=== PATIENT | female | born 2000 | race Caucasian/White ===

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

== ENCOUNTER 2019-11-08 02:17 | Observation (INO) | payer MEDICAID ==
[~2019-11-08] VITALS: Ht 152.4 cm; Wt 71.7 kg
[2019-11-08] MEDS ORDERED: PNV1TABL76 PO (02:50)
[2019-11-08] MEDS ORDERED: FERR325T6 PO (02:50)
== END 2019-11-08 04:00 | disposition home or self-care (01) ==
LOC: 8 EST LDRP 02:17
PROVIDERS: ADMIT Obstetrics & Gynecology; ATTEND Obstetrics & Gynecology
DX: O99.89 Other specified diseases and conditions complicating pregnancy, childbirth and the puerperium (principal); R07.89 Other chest pain; Z3A.38 38 weeks gestation of pregnancy
CPT/HCPCS: 99281; G0378

== ENCOUNTER 2019-11-08 04:16 | Emergency (ER) | payer MEDICAID ==
[~2019-11-08] VITALS: Ht 152.4 cm; Wt 72.0 kg
[~2019-11-08 04:16] MED LIST: FERR325T6 PO; PNV1TABL76 PO
[2019-11-08] MEDS ORDERED: VISCOUS LIDOCAINE 2% 15 ML UDC PO STA (04:53)
[2019-11-08] MEDS ORDERED: MAGNESIUM/ALUMINUM HYDROXIDE/SIMETHICONE 30ML UDC PO STA (04:53)
[2019-11-08 05:06] LABS: BASOPHILS % 0.5 % (0.0-2.0); HEMOGLOBIN. 10.1 g/dL (12.0-16.0); LYMPHOCYTES % 17.8 % (20.0-50.0); MEAN CORPUSCULAR HEMOGLOBIN 23.2 pg (28.0-32.0); MEAN CORPUSCULAR VOLUME 69.1 fL (81.0-99.0); MEAN PLATELET VOLUME 8.2 fl (7.4-10.4); MONOCYTES % 9.3 % (2.0-8.0); NEUTROPHILS % 70.4 % (40.0-76.0); PLATELET 324 x1000/uL (130-400); RED BLOOD CELL COUNT 4.34 mill/uL (4.2-5.4); RED CELL DISTRIBUTION WIDTH 14.8 % (11.6-14.6)
[2019-11-08 05:13] LABS: CHLORIDE 106 mEq/L (98-107)
[2019-11-08 05:16] LABS: ETHANOL BLOOD < 10 mg/dL
[2019-11-08 05:23] LABS: CLARITY URINE CLEAR (CLEAR); COLOR URINE YELLOW (YELLOW); KETONES URINE NEGATIVE (NEGATIVE); LEUKOCYTE ESTERASE URINE 2+ (NEGATIVE); NITRITE URINE NEGATIVE (NEGATIVE); OCCULT BLOOD URINE NEGATIVE (NEGATIVE); PH URINE 6.5 (4.5-8.0); PROTEIN URINE NEGATIVE (NEGATIVE); SPECIFIC GRAVITY URINE 1.013 (1.005-1.030)
[2019-11-08 05:29] LABS: *AMPHETAMINES SCREEN URINE NEGATIVE (NEGATIVE); *COCAINE SCREEN URINE NEGATIVE (NEGATIVE)
[2019-11-08 05:30] LABS: *BARBITURATES SCREEN URINE NEGATIVE (NEGATIVE); *BENZODIAZEPINES SCREEN URINE NEGATIVE (NEGATIVE); CANNABINOID URINE SCREEN NEGATIVE (NEGATIVE); METHADONE URINE SCREEN NEGATIVE (NEGATIVE); OPIATES URINE SCREEN NEGATIVE (NEGATIVE); PHENCYCLIDINE URINE SCREEN NEGATIVE (NEGATIVE)
[2019-11-08 06:13] LABS: PLATELET ESTIMATE NORMAL
[2019-11-08 06:45] VITALS: BP 125/75
== END 2019-11-08 07:14 | disposition home or self-care (01) ==
LOC: ER 04:16
DX: O26.893 Other specified pregnancy related conditions, third trimester (principal); K21.9 Gastro-esophageal reflux disease without esophagitis; O23.43 Unspecified infection of urinary tract in pregnancy, third trimester; Z3A.39 39 weeks gestation of pregnancy
CPT/HCPCS: 36415; 80053; 80305; 80320; 81003; 85025; 93005; 99284; G0480

== ENCOUNTER 2019-11-27 12:20 | Inpatient (IN) | payer MEDICAID, MEDICARE ==
[~2019-11-27] VITALS: Ht 152.4 cm; Wt 74.4 kg
[2019-11-27] MEDS ORDERED: LIDOCAINE HCL 1% 20ML VIAL (Pyxis) INJ INFIL SCH (13:30)
[2019-11-27] MEDS ORDERED: PENICILLIN G POTASSIUM 5 MMU in DEXT 5% WATER 100 ML IV SCH (13:30)
[2019-11-27] MEDS ORDERED: NALOXONE HCL 0.4 MG/ML 1ML VIAL IM PRN (13:30)
[2019-11-27] MEDS ORDERED: RHO(D) IMMUNE GLOBULIN 300 MCG/SYR IM ONE (13:30)
[2019-11-27] MEDS ORDERED: METHYLERGONOVINE MALEATE 0.2 MG/ML IM PRN (13:30)
[2019-11-27] MEDS: DEXT 5%/LR + PITOCIN 20UNITS/L 1,000 ML IV SCH (14:21)
[2019-11-27] MEDS: LACTATED RINGERS 1,000 ML IV SCH ×2 (14:21→18:17)
[2019-11-27 15:02] LABS: CLARITY URINE CLEAR (CLEAR); COLOR URINE YELLOW (YELLOW); KETONES URINE NEGATIVE (NEGATIVE); LEUKOCYTE ESTERASE URINE 1+ (NEGATIVE); NITRITE URINE NEGATIVE (NEGATIVE); OCCULT BLOOD URINE NEGATIVE (NEGATIVE); PROTEIN URINE TRACE (NEGATIVE); SPECIFIC GRAVITY URINE 1.016 (1.005-1.030)
[2019-11-27 15:03] LABS: HEMATOCRIT. 31.4 % (36.0-48.0); HEMOGLOBIN. 9.9 g/dL (12.0-16.0); MEAN CORPUSCULAR HEMOGLOBIN 21.7 pg (28.0-32.0); MEAN CORPUSCULAR VOLUME 68.4 fL (81.0-99.0); PLATELET 297 x1000/uL (130-400); RED BLOOD CELL COUNT 4.59 mill/uL (4.2-5.4); RED CELL DISTRIBUTION WIDTH 16.6 % (11.6-14.6)
[2019-11-27 15:07] LABS: INR 0.9; PARTIAL THROMBOPLASTIN TIME 25.9 sec (23.4-31.0); PROTHROMBIN TIME 9.4 sec (9.6-11.0)
[2019-11-27 15:29] LABS: *AMPHETAMINES SCREEN URINE NEGATIVE (NEGATIVE); *BARBITURATES SCREEN URINE NEGATIVE (NEGATIVE); *BENZODIAZEPINES SCREEN URINE NEGATIVE (NEGATIVE); *COCAINE SCREEN URINE NEGATIVE (NEGATIVE)
[2019-11-27 15:30] LABS: CANNABINOID URINE SCREEN NEGATIVE (NEGATIVE); METHADONE URINE SCREEN NEGATIVE (NEGATIVE); OPIATES URINE SCREEN NEGATIVE (NEGATIVE); PHENCYCLIDINE URINE SCREEN NEGATIVE (NEGATIVE)
[2019-11-27 15:37] LABS: HEPATITIS B SURFACE ANTIGEN NEGATIVE
[2019-11-27 15:45] LABS: PLATELET ESTIMATE NORMAL
[2019-11-27] MEDS ORDERED: PENICILLIN G POTASSIUM 2.5 MMU in DEXTROSE 5% WATER 50 ML IV SCH (17:30)
[2019-11-27] MEDS: BUTORPHANOL TARTRATE 2 MG/ML VIAL IV PRN ×2 (18:09→23:34)
[2019-11-28] MEDS ORDERED: ROPIVACAINE HCL/PF EPIDURAL 200 ML EPI SCH (02:45)
[2019-11-28] MEDS ORDERED: ROPIVACAINE HCL/PF EPIDURAL 200 ML EPI ONE (02:55)
[2019-11-28] MEDS: LACTATED RINGERS 1,000 ML IV SCH ×2 (05:01→06:43)
[2019-11-28] MEDS ORDERED: MINERAL OIL 30ML BOTTLE PO NR (06:54)
[2019-11-28] MEDS ORDERED: LIDOCAINE HCL 2%/EPINEPHRINE 1:100,000 20 ML VIAL INFIL ONE (10:25)
[2019-11-28] MEDS ORDERED: LACTATED RINGERS 500ML 500 ML IV SCH (11:15)
[2019-11-28] MEDS ORDERED: FENTANYL CITRATE/PF 50MCG/ML 2ML VIAL ONE ×2 (12:06→20:08)
[2019-11-28] MEDS: DEXT 5%/LR + PITOCIN 20UNITS/L 1,000 ML IV SCH (13:54)
[2019-11-28] MEDS ORDERED: CITRIC ACID/SODIUM CITRATE SOLN 30ML UDC PO NR (19:00)
[2019-11-28] MEDS ORDERED: MORPHINE SULFATE/PF 1MG/ML 10ML AMP ONE (20:08)
[2019-11-28] MEDS ORDERED: CEFAZOLIN 2,000 MG in DEXT 5% WATER 100 ML IV STA (21:33)
[2019-11-28] MEDS ORDERED: ACETAMINOPHEN 500MG TABLET PO ONE (21:45)
[2019-11-28] MEDS ORDERED: BUTORPHANOL TARTRATE 2 MG/ML VIAL IV PRN ×2 (23:30)
[2019-11-28] MEDS ORDERED: DIPHENHYDRAMINE 50MG/ML VIAL IV PRN (23:30)
[2019-11-28] MEDS ORDERED: NALOXONE HCL 0.4 MG/ML 1ML VIAL IV PRN (23:30)
[2019-11-28] MEDS ORDERED: KETOROLAC 30MG/ML VIAL IV SCH (23:30)
[2019-11-29] VITALS (11 sets, daily range): BP systolic 107–118; BP diastolic 64–76
[2019-11-29] MEDS ORDERED: DIPHENHYDRAMINE 50MG/ML VIAL ONE (00:06)
[2019-11-29] MEDS ORDERED: OXYTOCIN 10 UNITS/ML 1ML ONE ×2 (00:06→00:29)
[2019-11-29] MEDS ORDERED: KETOROLAC 60MG/2ML VIAL IM ONE (00:06)
[2019-11-29] MEDS ORDERED: ONDANSETRON HCL 4MG/2ML INJ ONE (00:06)
[2019-11-29] MEDS ORDERED: CEFAZOLIN SODIUM 1000MG/VIAL ONE (00:06)
[2019-11-29] MEDS ORDERED: METOCLOPRAMIDE HCL 10MG/2ML VIAL ONE (00:25)
[2019-11-29] MEDS ORDERED: DEXT 5%/LR + PITOCIN 20UNITS/L 1,000 ML IV SCH (00:40)
[2019-11-29] MEDS ORDERED: RHO(D) IMMUNE GLOBULIN 300 MCG/SYR IM PRN (00:45)
[2019-11-29] MEDS ORDERED: HYDROCODONE/ACETAMINOPHEN 5/325MG TABLET PO PRN (00:45)
[2019-11-29] MEDS ORDERED: IBUPROFEN 400MG TABLET PO PRN (00:45)
[2019-11-29] MEDS ORDERED: ONDANSETRON HCL 4MG/2ML INJ IV PRN (00:45)
[2019-11-29] MEDS ORDERED: ACETAMINOPHEN WITH CODEINE 300/30MG TABLET PO PRN (00:45)
[2019-11-29] MEDS ORDERED: LANOLIN OINT 7GM TUBE TOP PRN (00:45)
[2019-11-29] MEDS ORDERED: MISOPROSTOL 200MCG TABLET RC PRN (03:30)
[2019-11-29] MEDS ORDERED: CARBOPROST TROMETHAMINE 250 MCG/ML AMPUL IM NR (03:30)
[2019-11-29] MEDS ORDERED: METHYLERGONOVINE MALEATE 0.2 MG/ML IM NR (03:30)
[2019-11-29] MEDS ORDERED: ASPI-1497 PO (04:12)
[2019-11-29] MEDS ORDERED: OMEG100016 MT (04:12)
[2019-11-29] MEDS ORDERED: PRENATAL VIT/FE FUMARATE/FA TABLET PO SCH (09:00)
[2019-11-29] MEDS ORDERED: LACTATED RINGERS 1,000 ML IV SCH (16:15)
[2019-11-29] MEDS: DOCUSATE SODIUM 100MG CAPSULE PO SCH (22:38)
[2019-11-30 00:45] VITALS: BP 110/97
[2019-11-30 04:50] VITALS: BP 102/71
[2019-11-30 08:00] VITALS: BP 110/74
[2019-11-30 08:05] LABS: BASOPHILS % 0.4 % (0.0-2.0); LYMPHOCYTES % 17.2 % (20.0-50.0); MEAN CORPUSCULAR HEMOGLOBIN 22.1 pg (28.0-32.0); MEAN CORPUSCULAR VOLUME 68.1 fL (81.0-99.0); MEAN PLATELET VOLUME 8.4 fl (7.4-10.4); MONOCYTES % 6.3 % (2.0-8.0); NEUTROPHILS % 74.1 % (40.0-76.0); PLATELET 231 x1000/uL (130-400); RED BLOOD CELL COUNT 2.52 mill/uL (4.2-5.4); RED CELL DISTRIBUTION WIDTH 16.6 % (11.6-14.6)
[2019-11-30 08:09] LABS: HEMOGLOBIN. 5.6 g/dL (12.0-16.0)
[2019-11-30 08:10] LABS: HEMATOCRIT. 17.2 % (36.0-48.0)
[2019-11-30] MEDS: FERROUS SULFATE 325MG TABLET PO SCH ×2 (12:52→18:05)
[2019-11-30 16:00] VITALS: BP 119/74
[2019-11-30 20:30] VITALS: BP 115/73
[2019-11-30] MEDS: DOCUSATE SODIUM 100MG CAPSULE PO SCH (21:22)
[2019-12-01 00:30] VITALS: BP 114/71
[2019-12-01 04:25] VITALS: BP 116/68
[2019-12-01 07:45] VITALS: BP 109/63
[2019-12-01] MEDS: FERROUS SULFATE 325MG TABLET PO SCH (08:44)
[2019-12-01 09:30] LABS: MEAN CORPUSCULAR HEMOGLOBIN 22.3 pg (28.0-32.0); MEAN CORPUSCULAR VOLUME 68.8 fL (81.0-99.0); PLATELET 254 x1000/uL (130-400); RED BLOOD CELL COUNT 2.56 mill/uL (4.2-5.4); RED CELL DISTRIBUTION WIDTH 16.7 % (11.6-14.6)
[2019-12-01 09:37] LABS: HEMATOCRIT 17.6 % (36.0-48.0); HEMOGLOBIN 5.7 g/dL (12.0-16.0)
== END 2019-12-01 12:50 | disposition home or self-care (01) | DRG 540 ==
LOC: OBSVTOIN 12:20 → 8 EST LDRP 12:20 → 8 EST A/PP 11-29 03:00
PROVIDERS: ADMIT Obstetrics & Gynecology; ATTEND Obstetrics & Gynecology
PROC: 10D00Z1 Extraction of Products of Conception, Low, Open Approach (ICD-10-PCS; principal; 2019-11-28)
DX: O48.0 Post-term pregnancy (principal); O99.43 Diseases of the circulatory system complicating the puerperium; O75.2 Pyrexia during labor, not elsewhere classified; J45.909 Unspecified asthma, uncomplicated; O99.52 Diseases of the respiratory system complicating childbirth; D62 Acute posthemorrhagic anemia; Z3A.40 40 weeks gestation of pregnancy; Z37.0 Single live birth; R00.0 Tachycardia, unspecified; O99.03 Anemia complicating the puerperium; O72.1 Other immediate postpartum hemorrhage
CPT/HCPCS: 36415; 80305; 81003; 85025; 85027; 86592; 86703; 86762; 86850; 86900; 87340; 88307; 99281; G0378; J0595; J0690; J1200; J1885; J2274; J2405; J2540; J2590; J2765; J2795; J3010; J3490; J7060